=== PATIENT | female | born 1995 | race Caucasian/White ===

== ENCOUNTER 2019-08-17 10:57 | Emergency (ER) | payer OTHER ==
[~2019-08-17] VITALS: Ht 165.1 cm; Wt 73.5 kg
[2019-08-17 11:09] VITALS: Ht 165.1 cm; Wt 73.5 kg
[2019-08-17 11:51] LABS: BASOPHIL % 0.1 % (0-2); PLATELET COUNT 139 x10^3mcL (130-400); RED CELL DISTRIBUTION WIDTH 13.5 % (11.5-14.5)
[2019-08-17 12:19] LABS: CALCIUM 8.9 mg/dL (8.5-10.1); CHLORIDE SERUM 106 mmol/L (98-107); GFR1 > 60 mL/min; GLUCOSE SERUM 116 mg/dL (74-106); POTASSIUM SERUM 4.2 mmol/L (3.5-5.1); SODIUM SERUM 142 mmol/L (136-145)
[2019-08-17 12:24] LABS: ALBUMIN 3.6 g/dL (3.4-5.0); ALKALINE PHOSPHATASE 59 U/L (46-116); ALT/SGPT 14 U/L (14-59); AST/SGOT 10 U/L (15-37); BILIRUBIN TOTAL 1.2 mg/dL (0.20-1.00); LIPASE 65 IU/L (73-393); TOTAL PROTEIN, SERUM 7.1 g/dL (6.4-8.2)
[2019-08-17 13:47] VITALS: BP 98/58
== END 2019-08-17 13:47 | disposition home or self-care (01) ==
LOC: ED 10:57
PROVIDERS: Emergency Medicine
DX: N10 Acute pyelonephritis (principal); Z88.0 Allergy status to penicillin
CPT/HCPCS: J0696; J2270; J2405; J7030